=== PATIENT | female | born 1995 | race Caucasian/White ===

== ENCOUNTER 2025-10-04 07:54 | Emergency (ER) | payer OTHER, SELFPAY ==
[2025-10-04] MEDS ORDERED: Azithromycin 250 MG TAB ONE (08:21)
[2025-10-04] MEDS ORDERED: Tetracaine 0.5% PF 4 ML BOT ONE (08:21)
[2025-10-04] MEDS ORDERED: Naproxen 500 MG TAB ONE (08:21)
== END 2025-10-04 09:08 | disposition home or self-care (01) ==
LOC: NAV ERS 07:54
DX: H66.91 Otitis media, unspecified, right ear (principal); F17.210 Nicotine dependence, cigarettes, uncomplicated; F17.290 Nicotine dependence, other tobacco product, uncomplicated
CPT/HCPCS: 87428; 99283